=== PATIENT | male | born 1985 | race Caucasian/White ===

== ENCOUNTER 2020-12-26 11:42 | Emergency (ER) | payer OTHER ==
[~2020-12-26] VITALS: Ht 193 cm; Wt 190.5 kg
[~2020-12-26 11:42] MED LIST: CEPH500 PO; CIPR500 PO; Cipro500 MG PO; Flomax0.4 MG PO; KETO10 PO; OXYACE5T PO; PROM25 PO; Percocet 5-3251 EACH PO; RXPROM25 PO; TAMS.4ER PO
[2020-12-26 12:18] LABS: BASOPHILS ABSOLUTE AUTO 0.04 K/mm3 (0.00-0.23); BASOPHILS PERCENT AUTO 1 % (0-2); EOSINOPHILS ABSOLUTE AUTO 0.04 K/mm3 (0.00-0.68); EOSINOPHILS PERCENT AUTO 1 % (0-6); Hematocrit 46.6 % (37.0-53.0); Hemoglobin 15.3 g/dL (13.5-17.5); IMMATURE GRAN ABSOLUTE AUTO 0.03 K/mm3 (0.00-0.10); IMMATURE GRAN PERCENT AUTO 1 % (0-1); LYMPHOCYTES ABSOLUTE AUTO 1.08 K/mm3 (0.84-5.20); LYMPHOCYTES PERCENT AUTO 22 % (21-46); MONOCYTES ABSOLUTE AUTO 0.44 K/mm3 (0.16-1.47); MONOCYTES PERCENT AUTO 9 % (4-13); Mean Corpuscular HGB Conc 32.8 g/dL (31.5-36.5); Mean Corpuscular Volume 88 fL (80-100); Mean Platelet Volume 11.1 fL (9.1-12.4); NEUTROPHILS ABSOLUTE AUTO 3.34 K/mm3 (1.96-9.15); NEUTROPHILS PERCENT AUTO 67 % (41-73); Platelet Count 217 K/mm3 (150-400); RDW Standard Deviation 41.8 fL (35.1-46.3); Red Blood Cell Count 5.28 M/mm3 (4.30-5.90); White Blood Cell Count 4.97 K/mm3 (4.00-11.30)
[2020-12-26 12:33] LABS: Alanine Aminotransfer (ALT/SGP 33 U/L (12-78); Albumin, Blood 3.2 g/dL (3.4-5.0); Albumin/Globulin Ratio 0.7 (0.8-1.8); Alk Phos 44 U/L (50-136); Anion Gap 6 mmol/L (6-16); Aspartate Aminotrans (AST/SGOT 35 U/L (12-37); Bilirubin, Total 0.3 mg/dL (0.1-1.0); Blood Urea Nitrogen 6 mg/dL (8-24); Bun/Creatinine Ratio 6.7 (12.0-20.0); CO2, Blood 28 mmol/L (21-32); Calcium, Blood 8.2 mg/dL (8.5-10.1); Chloride, Blood 103 mmol/L (98-108); Creatinine, Blood 0.89 mg/dL (0.60-1.20); Globulin, Blood 4.4 g/dL (2.2-4.0); Glomerular Filtration Rate >60 (60-); Glucose, Blood 108 mg/dL (70-99); Potassium, Blood 3.3 mmol/L (3.5-5.5); Sodium, Blood 137 mmol/L (136-145); Total Protein, Blood 7.6 g/dL (6.4-8.2)
[2020-12-26] MEDS ORDERED: Prednisone20 MG PO (15:13)
== END 2020-12-26 16:10 | disposition home or self-care (01) ==
LOC: ER 11:42
PROVIDERS: Physician Assistant
DX: U07.1 COVID-19 (principal); R09.02 Hypoxemia
CPT/HCPCS: 36415; 71045; 80053; 85025; 99283-25; A9270; J1100

== ENCOUNTER 2021-07-06 19:25 | Emergency (ER) | payer OTHER ==
[~2021-07-06] VITALS: Ht 193 cm; Wt 200.5 kg
[~2021-07-06 19:25] MED LIST changes: +Prednisone20 MG PO
[2021-07-06] MEDS ORDERED: AMOX-CLAV 875-1 EAC5 (19:43)
[2021-07-06] MEDS ORDERED: LISI20 (19:43)
== END 2021-07-06 20:50 | disposition home or self-care (01) ==
LOC: ER 19:25
DX: I10 Essential (primary) hypertension (principal); J32.9 Chronic sinusitis, unspecified; Z79.899 Other long term (current) drug therapy; Z79.52 Long term (current) use of systemic steroids; J45.909 Unspecified asthma, uncomplicated
CPT/HCPCS: 99283

== ENCOUNTER 2024-06-23 21:02 | Emergency (ER) | payer OTHER, SELFPAY ==
[~2024-06-23] VITALS: Ht 193 cm; Wt 195.0 kg
[~2024-06-23 21:02] MED LIST changes: +AMOX-CLAV 875-1 EAC5; +LISI20
[2024-06-23] MEDS ORDERED: Ondansetron HCl 2 MG / ML 2ML Vial IV ONE ×2 (21:40→22:20)
[2024-06-23 22:07] LABS: BASOPHILS ABSOLUTE AUTO 0.11 K/mm3 (0.00-0.23); BASOPHILS PERCENT AUTO 1 % (0-2); EOSINOPHILS ABSOLUTE AUTO 0.19 K/mm3 (0.00-0.68); EOSINOPHILS PERCENT AUTO 2 % (0-6); Hematocrit 43.7 % (37.0-53.0); Hemoglobin 14.7 g/dL (13.5-17.5); IMMATURE GRAN ABSOLUTE AUTO 0.06 K/mm3 (0.00-0.10); IMMATURE GRAN PERCENT AUTO 1 % (0-1); LYMPHOCYTES ABSOLUTE AUTO 1.27 K/mm3 (0.84-5.20); LYMPHOCYTES PERCENT AUTO 10 % (21-46); MONOCYTES ABSOLUTE AUTO 0.74 K/mm3 (0.16-1.47); MONOCYTES PERCENT AUTO 6 % (4-13); Mean Corpuscular HGB 29.6 pg (26.0-34.0); Mean Corpuscular HGB Conc 33.6 g/dL (31.5-36.5); Mean Corpuscular Volume 88 fL (80-100); Mean Platelet Volume 12.1 fL (9.1-12.4); NEUTROPHILS ABSOLUTE AUTO 9.92 K/mm3 (1.96-9.15); NEUTROPHILS PERCENT AUTO 81 % (41-73); Platelet Count 232 K/mm3 (150-400); RDW Coefficient Variation 13.2 % (11.7-14.2); Red Blood Cell Count 4.96 M/mm3 (4.30-5.90); White Blood Cell Count 12.29 K/mm3 (4.00-11.30)
[2024-06-23 22:20] LABS: Albumin, Blood 3.8 g/dL (3.4-5.0); Albumin/Globulin Ratio 1.1 (0.8-1.8); Bilirubin, Total 0.4 mg/dL (0.1-1.0); Bun/Creatinine Ratio 13.5 (12.0-20.0); Calcium, Blood 9.3 mg/dL (8.5-10.1); Creatinine, Blood 1.04 mg/dL (0.60-1.20); Globulin, Blood 3.6 g/dL (2.2-4.0); Potassium, Blood 3.8 mmol/L (3.5-5.5); Total Protein, Blood 7.4 g/dL (6.4-8.2)
[2024-06-23] MEDS ORDERED: Ketorolac Tromethamine 30mg Vial IV ONE (22:20)
[2024-06-23] MEDS ORDERED: Lactated Ringer's 1,000 ML IV ONE (22:20)
[2024-06-23 22:30] VITALS: BP 128/72
[2024-06-23 22:51] LABS: Source, Urine Clean Catch
[2024-06-23 22:52] LABS: Bilirubin, Urine Neg (Neg); Blood, Urine 5+ (Neg); Glucose Qualitative, Urine Neg (Neg); Ketones, Urine 4+ (Neg); Leukocyte Esterase, Urine Neg (Neg); Nitrite, Urine Neg (Neg); Protein, Urine 2+ (Neg); Urobilinogen, Urine NORM (Normal)
[2024-06-23 23:05] LABS: Appearance, Urine Hazy (Clear); Color, Urine Yellow (P-Yellow)
[2024-06-23 23:06] LABS: Amorphous Light (0-Heavy); Bacteria Rare /hpf; Mucus Mod (0-Heavy); Red Blood Cells, Urine TNTC /hpf (0-2); Squamous Epithelial Cells Not Seen /hpf (Few); White Blood Cells, Urine 0-2 /hpf (0-5)
[2024-06-24] MEDS ORDERED: Tamsulosin HCl 0.4 MG Cap PO ONE (00:10)
[2024-06-24] MEDS ORDERED: TAMS.4ER PO (00:13)
[2024-06-24] MEDS ORDERED: RX Prepack 6 Tabs Oxycodone 5mg UD ONE (00:15)
== END 2024-06-24 00:43 | disposition home or self-care (01) ==
LOC: ER 21:02
PROVIDERS: Emergency Medicine
DX: N20.1 Calculus of ureter (principal); J45.909 Unspecified asthma, uncomplicated; I10 Essential (primary) hypertension
CPT/HCPCS: 74176; 80053; 81001; 85025; 96374; 99284-25; A9270; J1885; J2405; J7120

== ENCOUNTER 2025-05-16 10:28 | Emergency (ER) | payer OTHER ==
[~2025-05-16] VITALS: Ht 193 cm; Wt 195.0 kg
[2025-05-16 11:06] VITALS: BP 158/85
[2025-05-16] MEDS ORDERED: Ketorolac Tromethamine 30mg Vial IM ONE (12:30)
[2025-05-16] MEDS ORDERED: Lidocaine 4% 1 Patch TOP ONE (12:30)
[2025-05-16] MEDS ORDERED: OxyCODONE 5 mg/Acetamin 325 mg TABLET PO ONE (12:30)
[2025-05-16] MEDS ORDERED: Robaxin750 MG PO (15:12)
[2025-05-16] MEDS ORDERED: LIDO700A20 TOP (15:12)
== END 2025-05-16 15:45 | disposition home or self-care (01) ==
LOC: ER 10:28
DX: M54.16 Radiculopathy, lumbar region (principal); R00.0 Tachycardia, unspecified; E66.01 Morbid (severe) obesity due to excess calories; I10 Essential (primary) hypertension; J45.909 Unspecified asthma, uncomplicated; Z79.899 Other long term (current) drug therapy
CPT/HCPCS: 96372; 99283-25; A9270; J1885